=== PATIENT | female | born 1950 | race Caucasian/White ===

== ENCOUNTER → 2017-08-09 | Outpatient (CLI) | payer MEDICARE ==
--- NOTE | 2017-08-10 14:03 | RADIOLOGY REPORT PS360 ---
FOOT-LT-3 VIEWS COMPARISON: None HISTORY: Left foot pain after injury TECHNIQUE: AP lateral and oblique views FINDINGS: The tarsal bones appear intact. 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 There is prominent joint space narrowing sclerosis of the tarsometatarsal joints 1 through 5. There Is a probable old healed or healing stress fracture of the second metatarsal. The phalanges all appear intact. There is moderate generalized osteopenia. The plantar arch is normal and is no calcaneal spur. IMPRESSION: Prominent osteoarthritic changes at the tarsometatarsal joints as noted, doubt acute fracture
== END ==
LOC: RAD 13:15
DX: S86.102A Unspecified injury of other muscle(s) and tendon(s) of posterior muscle group at lower leg level, left leg, initial encounter (principal)